=== PATIENT | female | born 1965 | race African-American/Black ===

== ENCOUNTER 2016-12-02 21:04 | Emergency (ER) | payer OTHER ==
[~2016-12-02] VITALS: Ht 175.3 cm; Wt 73.0 kg
[2016-12-02] MEDS ORDERED: SODIUM CHLORIDE 0.9% 1,000 ML IV ONE (23:49)
[2016-12-02] MEDS ORDERED: MORPHINE SULFATE 4 MG/ML CPJ (NOT FOR IM USE) IV STA (23:49)
[2016-12-02] MEDS ORDERED: METOCLOPRAMIDE HCL 10MG/2ML VIAL IV STA (23:49)
[2016-12-03 00:04] LABS: BASOPHILS % 0.5 % (0.0-2.0); EOSINOPHILS % 6.1 % (0.0-5.0); HEMATOCRIT. 35.9 % (36.0-48.0); HEMOGLOBIN. 11.6 g/dL (12.0-16.0); LYMPHOCYTES % 30.9 % (20.0-50.0); MEAN CORPUSCULAR HEMOGLOBIN 28.6 pg (28.0-32.0); MEAN CORPUSCULAR HGB CONC 32.3 g/dL (31.0-37.0); MEAN CORPUSCULAR VOLUME 88.5 fL (81.0-99.0); MEAN PLATELET VOLUME 6.8 fl (7.4-10.4); MONOCYTES % 9.7 % (2.0-8.0); NEUTROPHILS % 52.8 % (40.0-76.0); PLATELET 280 x1000/uL (130-400); RED BLOOD CELL COUNT 4.06 mill/uL (4.2-5.4); RED CELL DISTRIBUTION WIDTH 14.6 % (11.6-14.6); WHITE BLOOD COUNT 5.7 x1000/uL (4.5-11.0)
[2016-12-03 00:09] LABS: CHLORIDE 106 mEq/L (98-107); INDEX HEMOLYSI 1 (1-3); INDEX ICTERIC 1 (1-4); INDEX LIPEMIC 1 (1-3)
[2016-12-03 00:17] LABS: ALANINE AMINOTRANSFERASE 23 IU/L (13-61); ALBUMIN 3.2 g/dL (3.4-5.0); ANION GAP 9; CALCIUM 8.9 mg/dL (8.5-10.1); CARBON DIOXIDE 32 mEq/L (21-32); LIPASE 143 IU/L (73-393); UREA NITROGEN BLOOD 12 mg/dL (7-21); eGFR > 60 mL/min (>60)
[2016-12-03] MEDS ORDERED: TRAMADOL 50MG TABLET PO ONE (02:45)
[2016-12-03 02:52] VITALS: BP 127/71
== END 2016-12-03 03:07 | disposition home or self-care (01) ==
LOC: ER 22:48
DX: K44.9 Diaphragmatic hernia without obstruction or gangrene (principal); E86.0 Dehydration; F41.9 Anxiety disorder, unspecified; Z98.890 Other specified postprocedural states; Z90.710 Acquired absence of both cervix and uterus; Z90.49 Acquired absence of other specified parts of digestive tract
CPT/HCPCS: 36415; 80053; 83690; 85025; 96361; 96374; 96375; 99285; J7030; Z7610

== ENCOUNTER 2017-02-20 19:36 | Emergency (ER) | payer SELFPAY ==
[~2017-02-20] VITALS: Ht 175.3 cm; Wt 73.0 kg
[2017-02-20] MEDS ORDERED: SODIUM CHLORIDE 0.9% 1,000 ML IV ONE (22:25)
[2017-02-20] MEDS ORDERED: ONDANSETRON HCL 4MG/2ML VIAL IV STA (22:25)
[2017-02-20] MEDS ORDERED: MORPHINE SULFATE 4 MG/ML CPJ (NOT FOR IM USE) IV STA (22:25)
[2017-02-20 23:19] LABS: CLARITY URINE CLEAR (CLEAR); COLOR URINE YELLOW (YELLOW); GLUCOSE URINE NEGATIVE (NEGATIVE); KETONES URINE NEGATIVE (NEGATIVE); LEUKOCYTE ESTERASE URINE 1+ (NEGATIVE); NITRITE URINE NEGATIVE (NEGATIVE); OCCULT BLOOD URINE NEGATIVE (NEGATIVE); PH URINE 5.5 (4.5-8.0); PROTEIN URINE NEGATIVE (NEGATIVE); SPECIFIC GRAVITY URINE 1.025 (1.005-1.030); UROBILINOGEN URINE 0.2 E.U./dL (0.2-1.0)
[2017-02-21] MEDS ORDERED: MORPHINE SULFATE 4 MG/ML CPJ (NOT FOR IM USE) IV ONE
[2017-02-21 00:20] LABS: BASOPHILS % 0.5 % (0.0-2.0); EOSINOPHILS % 1.6 % (0.0-5.0); HEMATOCRIT. 35.1 % (36.0-48.0); HEMOGLOBIN. 11.2 g/dL (12.0-16.0); LYMPHOCYTES % 27.3 % (20.0-50.0); MEAN CORPUSCULAR HEMOGLOBIN 26.5 pg (28.0-32.0); MEAN CORPUSCULAR VOLUME 83.1 fL (81.0-99.0); MEAN PLATELET VOLUME 6.5 fl (7.4-10.4); MONOCYTES % 6.2 % (2.0-8.0); NEUTROPHILS % 64.4 % (40.0-76.0); PLATELET 334 x1000/uL (130-400); RED BLOOD CELL COUNT 4.23 mill/uL (4.2-5.4); RED CELL DISTRIBUTION WIDTH 13.9 % (11.6-14.6)
[2017-02-21 00:32] LABS: CARBON DIOXIDE 32 mEq/L (21-32); CHLORIDE 107 mEq/L (98-107)
[2017-02-21] MEDS ORDERED: HYDROCODONE/ACETAMINOPHEN 5/325MG TABLET PO NR (00:45)
[2017-02-21 01:07] VITALS: BP 114/84
== END 2017-02-21 01:12 | disposition home or self-care (01) ==
LOC: ER 22:12
DX: N39.0 Urinary tract infection, site not specified (principal); Z90.49 Acquired absence of other specified parts of digestive tract; Z90.710 Acquired absence of both cervix and uterus; Z93.0 Tracheostomy status; Z98.890 Other specified postprocedural states
CPT/HCPCS: 36415; 74176; 80053; 81001; 83690; 85025; 96361; 96374; 96375; 96376; 99285; J2270; J2405; J7030; Z7610

== ENCOUNTER 2017-02-25 22:07 | Emergency (ER) | payer SELFPAY | END 2017-02-25 23:23 | disposition left against medical advice (07) | LOC: ER 23:04 | DX: Z53.21 Procedure and treatment not carried out due to patient leaving prior to being seen by health care provider (principal) ==

== ENCOUNTER 2017-02-25 23:27 | Emergency (ER) | payer BC, MEDICAID ==
[~2017-02-25] VITALS: Ht 175.3 cm; Wt 72.6 kg
[2017-02-26] MEDS ORDERED: MORPHINE SULFATE 4 MG/ML CPJ (NOT FOR IM USE) IV STA (03:30)
[2017-02-26] MEDS ORDERED: ONDANSETRON HCL 4MG/2ML VIAL IV STA (03:30)
[2017-02-26 03:58] LABS: BASOPHILS % 0.6 % (0.0-2.0); EOSINOPHILS % 3.8 % (0.0-5.0); HEMOGLOBIN. 10.9 g/dL (12.0-16.0); LYMPHOCYTES % 27.2 % (20.0-50.0); MEAN CORPUSCULAR HEMOGLOBIN 26.8 pg (28.0-32.0); MEAN CORPUSCULAR VOLUME 83.3 fL (81.0-99.0); MEAN PLATELET VOLUME 6.8 fl (7.4-10.4); MONOCYTES % 7.7 % (2.0-8.0); NEUTROPHILS % 60.7 % (40.0-76.0); PLATELET 251 x1000/uL (130-400); RED BLOOD CELL COUNT 4.08 mill/uL (4.2-5.4); RED CELL DISTRIBUTION WIDTH 14.2 % (11.6-14.6)
[2017-02-26 04:02] LABS: INR 1.1; PROTHROMBIN TIME 10.9 sec
[2017-02-26 04:09] LABS: CARBON DIOXIDE 31 mEq/L (21-32); CHLORIDE 105 mEq/L (98-107)
[2017-02-26 04:15] LABS: CLARITY URINE CLEAR (CLEAR); COLOR URINE YELLOW (YELLOW); KETONES URINE TRACE (NEGATIVE); LEUKOCYTE ESTERASE URINE NEGATIVE (NEGATIVE); NITRITE URINE NEGATIVE (NEGATIVE); OCCULT BLOOD URINE NEGATIVE (NEGATIVE); PH URINE 5.5 (4.5-8.0); PROTEIN URINE NEGATIVE (NEGATIVE); SPECIFIC GRAVITY URINE 1.045 (1.005-1.030); UROBILINOGEN URINE 0.2 E.U./dL (0.2-1.0)
[2017-02-26 07:03] VITALS: BP 118/69
== END 2017-02-26 07:05 | disposition home or self-care (01) ==
LOC: ER 23:33
DX: R10.31 Right lower quadrant pain (principal); F31.9 Bipolar disorder, unspecified; Z90.49 Acquired absence of other specified parts of digestive tract; Z90.710 Acquired absence of both cervix and uterus; Z93.0 Tracheostomy status
CPT/HCPCS: 36415; 80053; 81003; 83690; 85025; 85610; 96374; 96375; 99284; J2270; J2405; Z7610

== ENCOUNTER 2017-09-07 22:03 | Emergency (ER) | payer BC, MEDICAID, OTHER ==
[~2017-09-07] VITALS: Ht 175.3 cm; Wt 73.0 kg
[2017-09-08] MEDS ORDERED: MORPHINE SULFATE 4 MG/ML CPJ (NOT FOR IM USE) IV ONE (01:15)
[2017-09-08] MEDS ORDERED: ONDANSETRON 4MG ODT PO ONE (01:15)
[2017-09-08] MEDS ORDERED: MORPHINE SULFATE 2 MG/ML CPJ (NOT FOR IM USE) IV ONE (01:15)
[2017-09-08 01:50] LABS: BASOPHILS % 0.8 % (0.0-2.0); EOSINOPHILS % 0.8 % (0.0-5.0); HEMATOCRIT. 33.2 % (36.0-48.0); HEMOGLOBIN. 10.5 g/dL (12.0-16.0); LYMPHOCYTES % 23.2 % (20.0-50.0); MEAN CORPUSCULAR HEMOGLOBIN 24.1 pg (28.0-32.0); MEAN PLATELET VOLUME 6.4 fl (7.4-10.4); MONOCYTES % 8.5 % (2.0-8.0); NEUTROPHILS % 66.7 % (40.0-76.0); PLATELET 331 x1000/uL (130-400); RED BLOOD CELL COUNT 4.37 mill/uL (4.2-5.4); RED CELL DISTRIBUTION WIDTH 17.2 % (11.6-14.6)
[2017-09-08 01:58] LABS: PROTHROMBIN TIME 10.2 sec (9.4-11.6)
[2017-09-08] MEDS ORDERED: MORPHINE SULFATE 4 MG/ML CPJ (NOT FOR IM USE) IV NR ×2 (02:00)
[2017-09-08 02:02] LABS: CHLORIDE 106 mEq/L (98-107)
[2017-09-08 02:09] LABS: CARBON DIOXIDE 31 mEq/L (21-32); ETHANOL BLOOD < 10 mg/dL
[2017-09-08 02:56] LABS: CLARITY URINE CLOUDY (CLEAR); COLOR URINE YELLOW (YELLOW); KETONES URINE NEGATIVE (NEGATIVE); LEUKOCYTE ESTERASE URINE TRACE (NEGATIVE); NITRITE URINE NEGATIVE (NEGATIVE); OCCULT BLOOD URINE NEGATIVE (NEGATIVE); PH URINE 6.5 (4.5-8.0); PROTEIN URINE NEGATIVE (NEGATIVE); SPECIFIC GRAVITY URINE 1.009 (1.005-1.030); UROBILINOGEN URINE 0.2 E.U./dL (0.2-1.0)
[2017-09-08 03:34] LABS: *AMPHETAMINES SCREEN URINE NEGATIVE (NEGATIVE); *BARBITURATES SCREEN URINE NEGATIVE (NEGATIVE); *BENZODIAZEPINES SCREEN URINE NEGATIVE (NEGATIVE); *COCAINE SCREEN URINE PRESUMTIVE POSITIVE (NEGATIVE); CANNABINOID URINE SCREEN PRESUMTIVE POSITIVE (NEGATIVE); METHADONE URINE SCREEN NEGATIVE (NEGATIVE); OPIATES URINE SCREEN PRESUMTIVE POSITIVE (NEGATIVE); PHENCYCLIDINE URINE SCREEN NEGATIVE (NEGATIVE)
[2017-09-08] MEDS ORDERED: TETANUS, DIPHTHERIA, PERTUSSIS VAC/PF 0.5ML (>7YR OLD) IM ONE (04:45)
[2017-09-08] MEDS ORDERED: LIDOCAINE HCL 1%/EPI 1:200,000 30 ML VIAL MC ONE (04:45)
[2017-09-08] MEDS ORDERED: BACITRACIN ZINC OINT UDPKT TOP ONE (04:45)
[2017-09-08] MEDS ORDERED: LIDOCAINE/EPINEPHR/TETRACAINE 3ML TP NR (05:00)
[2017-09-08] MEDS ORDERED: KETOROLAC 30MG/ML VIAL IV ONE (05:30)
[2017-09-08] MEDS ORDERED: ONDANSETRON HCL 4MG/2ML VIAL IV ONE (05:30)
[2017-09-08] MEDS ORDERED: LIDOCAINE HCL 1%/EPI 1:200,000 30 ML VIAL MC NR (06:00)
[2017-09-08 06:30] VITALS: BP 123/70
== END 2017-09-08 07:14 | disposition home or self-care (01) ==
LOC: ER 22:36
DX: S06.9X9A Unspecified intracranial injury with loss of consciousness of unspecified duration, initial encounter (principal); S01.81XA Laceration without foreign body of other part of head, initial encounter; F41.9 Anxiety disorder, unspecified; R41.3 Other amnesia; W01.0XXA Fall on same level from slipping, tripping and stumbling without subsequent striking against object, initial encounter; Y93.89 Activity, other specified; Y92.89 Other specified places as the place of occurrence of the external cause; Y99.8 Other external cause status; R79.1 Abnormal coagulation profile; F31.9 Bipolar disorder, unspecified
CPT/HCPCS: 12013; 36415; 70450; 70486; 80053; 80305; 81001; 85025; 85610; 90471; 90715; 96374; 99285; G0482; J2270; Q0162; X7700; Z7610; J1885; J2405